=== PATIENT | male | born 1965 | race Caucasian/White ===

== ENCOUNTER 2017-11-23 16:53 | Outpatient (CLI) | payer OTHER ==
--- NOTE | 2017-11-24 08:33 | Diagnostic Imaging Report ---
Indication: Cough Technique: 2 views of the chest Comparison: none. Findings: Lungs and pleural spaces are clear. Heart size is normal. Bones are unremarkable. There is surgical hardware in the right humerus. Impression: No acute process
== END 2017-11-23 18:53 | disposition home or self-care (01) ==
LOC: RAD 16:53
DX: Z01.818 Encounter for other preprocedural examination (principal); R05 Cough
CPT/HCPCS: 71046